=== PATIENT | female | born 1965 ===

== ENCOUNTER 2018-03-13 17:39 | Emergency (ER) | payer MEDICARE, MEDICAID ==
[2018-03-13 17:39] VITALS: BMI 24.0
[2018-03-13 18:03] VITALS: BP 102/69; PULSE 82; RESP 20; TEMP 97.4; O2SAT 97
--- NOTE | 2018-03-13 18:52 | C.PDOC ---
History Of Present Illness 53 y/o female presents to the ED for evaluation of right hand injury s/p fall out of bed 3 days ago. Patient is now complaining of persistent swelling and bruising to the hand. She went to see PMD today however they were unable to obtain he x-rays in the office and patient was referred to the ED. Patient denies any change in sensation. Time Seen by Provider: 03/13/18 18:03 Chief Complaint (Nursing): Finger,Hand,&Wrist History Per: Patient History/Exam Limitations: no limitations Onset/Duration Of Symptoms: Days Current Symptoms Are (Timing): Still Present Past Medical History Reviewed: Historical Data, Nursing Documentation, Vital Signs Vital Signs: Last Vital Signs Temp 97.4 F L 03/13/18 18:01 Pulse 82 03/13/18 18:01 Resp 20 03/13/18 18:01 BP 102/69 03/13/18 18:01 Pulse Ox 97 03/13/18 18:01 - Medical History PMH: Schizophrenia Surgical History: Cholecystectomy Family History: States: No Known Family Hx - Social History Hx Alcohol Use: No Hx Substance Use: No - Immunization History Hx Tetanus Toxoid Vaccination: No Hx Influenza Vaccination: No Hx Pneumococcal Vaccination: No Review Of Systems Constitutional: Negative for: Fever, Chills, Weakness Eyes: Negative for: Redness ENT: Negative for: Mouth Swelling Cardiovascular: Negative for: Chest Pain Respiratory: Negative for: Cough, Shortness of Breath Gastrointestinal: Negative for: Nausea, Vomiting, Diarrhea Genitourinary: Negative for: Dysuria Musculoskeletal: Positive for: Hand Pain. Negative for: Back Pain Skin: Positive for: Bruising. Negative for: Rash Neurological: Negative for: Weakness, Numbness, Dizziness Physical Exam - Physical Exam Appears: Well, Non-toxic, No Acute Distress Skin: Warm, No Rash Head: Atraumatic, Normacephalic Eye(s): bilateral: Normal Inspection, PERRL, EOMI Oral Mucosa: Moist Neck: Normal ROM Chest: Symmetrical Respiratory: No Accessory Muscle Use, Other (Normal inspiratory effort) Extremity: Normal ROM (of all digits), Tenderness, Capillary Refill (< 2 sec), Swelling (and ecchymosis to the right hand over the 4th metacarpal and 4th/5th proximal phalanx) Pulses: Left Radial: Normal, Right Radial: Normal Neurological/Psych: Oriented x3, Normal Motor, Normal Sensation ED Course And Treatment O2 Sat by Pulse Oximetry: 97 (RA) Pulse Ox Interpretation: Normal - Other Rad hand x-ray X-Ray: Interpreted by Me, Viewed By Me Interpretation: + fracture at base of the proximal phalanx of the right 5th digit Medical Decision Making Medical Decision Making: Impression: Hand pain Plan: - right hand x-ray Imaging reviewed by me, showing (+) fracture at base of the proximal phalanx of the right 5th digit. Patient notified of findings. Splint applied to right hand. Patient is stable for discharge home. Advised to follow up with hand specialist, referral provided. Disposition Counseled Patient/Family Regarding: Studies Performed, Diagnosis, Need For Followup - Disposition Referrals: Michael Rodriguez MD [Staff Provider] - Disposition: HOME/ ROUTINE Disposition Time: 18:50 Condition: STABLE Instructions: Finger Fracture (DC) Forms: [employer] (Liberian) - Clinical Impression Clinical Impression: Fracture of finger, middle or proximal phalanx, closed - PA / SEARCH MARKETING ANALYST / Resident Statement MD/DO has reviewed & agrees with the documentation as recorded. - Scribe Statement The provider has reviewed the documentation as recorded by the Scribe Thu Cortes All medical record entries made by the Fabricioibmichael were at my direction and personally dictated by me. I have reviewed the chart and agree that the record accurately reflects my personal performance of the history, physical exam, medical decision making, and the department course for this patient. I have also personally directed, reviewed, and agree with the discharge instructions and disposition.
--- NOTE | 2018-03-14 11:08 | RAD ---
PROCEDURE: Right hand Radiographs. HISTORY: fracture COMPARISON: None available. FINDINGS: BONES: Osseous demineralization limits evaluation for acute fracture lines. Acute fracture deformity at the base of 5th proximal phalanx with intra-articular extension. Chronic appearing deformity of the 5th metacarpal. Nonspecific rounded 3 mm lucency in the scaphoid. JOINTS: No dislocation. SOFT TISSUES: Soft tissue swelling. No evidence of radiopaque foreign body. OTHER FINDINGS: None. IMPRESSION: Acute mildly displaced fracture deformity at the base of the 5th proximal phalanx with intra-articular extension. Soft tissue swelling. Remote healed fracture deformity of the 5th metacarpal. Additional incidental findings as above. Study marked for PA review.
== END 2018-03-13 19:02 | disposition home or self-care (01) ==
LOC: C.ER 17:39
DX: S62.616A Displaced fracture of proximal phalanx of right little finger, initial encounter for closed fracture (principal); W06.XXXA Fall from bed, initial encounter; F20.9 Schizophrenia, unspecified

== ENCOUNTER 2018-05-08 16:25 | Emergency (ER) | payer MEDICAID, MEDICARE ==
[2018-05-08 16:25] VITALS: BMI 24.0
--- NOTE | 2018-05-08 17:57 | C.PDOC ---
History Of Present Illness 53 yr old F w/ hx of schizophrenia, HTN, DM p/w referral from PMD Dr. Mathew for ARF, dehydration, and ?pyelo. Patient was recently evaluated in [facility] and diagnosed with pyelonephritis. Patient refused to stay at the time and was disch arged home with antibiotics. Patient saw her PMD today and underwent labs which were abnormal, and is sent to the ED for further evaluation. Patient denies currently being on antibiotics. Patient complaints of diffuse abdominal pain and dysuria. She denies fever, chills,chest pain and shortness of breath. She denies hearing any voices at this time. No SI or HI. No anxiety or depression. Time Seen by Provider: 05/08/18 17:57 Chief Complaint (Nursing): Abdominal Pain History Per: Patient History/Exam Limitations: no limitations Onset/Duration Of Symptoms: Hrs Current Symptoms Are (Timing): Still Present Quality Of Discomfort: "Pain" Associated Symptoms: Urinary Symptoms. denies: Fever, Chills, Back Pain, Chest Pain Past Medical History Reviewed: Historical Data, Nursing Documentation, Vital Signs Vital Signs: Last Vital Signs Temp 97.5 F L 05/08/18 17:06 Pulse 83 05/08/18 17:06 Resp 18 05/08/18 17:06 BP 110/63 05/08/18 17:06 Pulse Ox 100 05/08/18 17:06 - Medical History PMH: HTN, Schizophrenia Surgical History: Cholecystectomy Family History: States: Unknown Family Hx - Social History Hx Alcohol Use: No Hx Substance Use: No - Immunization History Hx Tetanus Toxoid Vaccination: No Hx Influenza Vaccination: No Hx Pneumococcal Vaccination: No Review Of Systems Constitutional: Negative for: Fever, Chills, Weakness, Malaise Eyes: Negative for: Pain, Vision Change ENT: Negative for: Ear Pain, Ear Discharge, Nose Pain, Nose Congestion, Mouth Pain, Throat Pain Cardiovascular: Negative for: Chest Pain, Palpitations, Orthopnea Respiratory: Negative for: Cough, Shortness of Breath, Hemoptysis, SOB with Excertion, Pleuritic Pain, Sputum Gastrointestinal: Positive for: Abdominal Pain. Negative for: Nausea, Vomiting Genitourinary: Positive for: Dysuria. Negative for: Frequency, Incontinence, Hematuria, Vaginal Discharge, Vaginal Bleeding Musculoskeletal: Negative for: Neck Pain, Shoulder Pain, Arm Pain, Back Pain, Hand Pain, Leg Pain Skin: Negative for: Rash, Lesions Neurological: Negative for: Weakness Physical Exam - Physical Exam Appears: Well, Non-toxic, No Acute Distress Skin: Normal Color, Warm, Dry Head: Atraumatic, Normacephalic Eye(s): bilateral: Normal Inspection, PERRL, EOMI Nose: Normal, No Flaring, No Discharge Oral Mucosa: Moist Tongue: Normal Appearing, No Swelling, No Lesions Lips: Normal Appearing, No Swelling, No Contusion Teeth: Normal Dentition, No Caries Gingiva: Normal Appearing, No Erythema Throat: Normal, No Erythema, No Exudate Neck: Normal, Normal ROM, Supple, Other (no meningeal signs) Lymphatic: Normal Exam Chest: Symmetrical, No Deformity, No Tenderness Cardiovascular: Rhythm Regular, No Murmur Respiratory: Normal Breath Sounds, No Rales, No Rhonchi, No Wheezing Gastrointestinal/Abdominal: Soft, Tenderness (diffuse ), No Organomegaly, No Mass, No Distention, No Guarding, No Rebound, Other (no peritoneal signs ) Back: No CVA Tenderness, No Vertebral Tenderness Extremity: Normal ROM, Capillary Refill (less than 2 seconds ) Neurological/Psych: Oriented x3, Normal Speech, Normal Cognition ED Course And Treatment - Laboratory Results Result Diagrams: 05/08/18 18:40 05/08/18 18:47 O2 Sat by Pulse Oximetry: 100 (on RA ) Pulse Ox Interpretation: Normal Medical Decision Making Medical Decision Makin yr old female p/w concern for ARF / UTI / PYELO. On exam, well appearing in NAD. Mild abdominal pain. No fall or trauma noted. No dark or bloody stool. +dysuria w/ out rashes or sexual activity. No abnl vaginal d/c. Likely enteritis vs UTI. Progress: Bloodwork, CXR, CT A/P, EKG ordered and reviewed. Dextrose IV and IV Fluids given. 1931 appreciate consult w/ Dr. Mathew: Cr improved today from 2 to 0.9 contaminated UA sample Pending CT pending imaging 2235 imaging w/ enteritis. No elevated WBC. Pain improved per pt Spoke to PMD DR. Bañuelos, agreeable to plan for UTI rx outpt w/ scripts clear for d/c home w/ f/u and return indications Pt in NAD, agreeable to plan Disposition - Disposition Referrals: Breann Patten MD [Staff Provider] - [facility] [Outside] [facility] [Outside] [facility] [Outside] Disposition: HOME/ ROUTINE Disposition Time: 22:31 Condition: GOOD Additional Instructions: JANET GALDAMEZ, thank you for letting us take care of you today. Your pro vider was Gagan Lawson and you were treated for SENT BY PMD/EVAL. The emergency medical care you received today was directed at your acute symptoms. If you were prescribed any medication, please fill it and take as directed. It may take several days for your symptoms to resolve. Return to the Emergency Department if your symptoms worsen, do not improve, or if you have any other problems. Please contact your doctor or call one of the physicians/clinics you have been referred to that are listed on the Patient Visit Information form that is included in your discharge packet. Bring any paperwork you were given at discharge with you along with any medications you are taking to your follow up visit. Our treatment cannot replace ongoing medical care by a primary care provider outside of the emergency department. Thank you for allowing the [facility] team to be part of your care today. If you had an X-Ray or CT scan: A Radiologist will review the ED reading if any change in treatment is needed we will contact you. If you had a blood, urine, or wound culture: It will take several days for the results, if any change in treatment is needed we will contact you. If you had an STI test: It will take 48 hours for the results. Please call after 1 week if you have not heard back. Prescriptions: Ciprofloxacin HCl [Cipro] 500 mg PO BID 10 Days #20 tablet Famotidine [Pepcid] 20 mg PO Q12H PRN 3 Days #6 tab PRN Reason: Dyspepsia Phenazopyridine HCl [Pyridium] 200 mg PO BID 2 Days #4 tablet Instructions: Urinary Tract Infections in Adults, Gastritis (DC) Forms: [facility] (Kyrgyz) - Clinical Impression Clinical Impression: UTI (urinary tract infection), Gastroenteritis - Scribe Statement The provider has reviewed the documentation as recorded by the Scribe (Alessandra Callejas) Provider Attestation: All medical record entries made by the Scribe were at my direction and personally dictated by me. I have reviewed the chart and agree that the record accurately reflects my personal performance of the history, physical exam, medical decision making, and the department course for this patient. I have also personally directed, reviewed, and agree with the discharge instructions and disposition.
[2018-05-08] MEDS ORDERED: Dextrose 50% SYRINGE Inj (50 ml) IV STA (18:34)
[2018-05-08 18:48] LABS: SQUAMOUS EPITHIAL 20 /hpf (0-5); URINE BILIRUBIN NEGATIVE (NEGATIVE); URINE BLOOD NEGATIVE (NEGATIVE); URINE CLARITY Hazy (Clear); URINE COLOR Yellow (YELLOW); URINE GLUCOSE (UA) NORMAL (Normal); URINE LEUKOCYTE ESTERASE 2+ Leu/uL (Negative); URINE PROTEIN NEGATIVE (NEGATIVE); URINE UROBILINOGEN NORMAL mg/dL (0.2-1.0)
[2018-05-08 18:52] LABS: BASO # 0.2 K/uL (0.0-0.2); BASO % 1.9 % (0.0-2.0); EOS # 0.3 K/uL (0.0-0.7); EOS % 2.9 % (0.0-4.0); LYMPH # 3.9 K/uL (1.0-4.3); MEAN CELL VOLUME 90.2 fL (81.0-99.0); MEAN CORPUSCULAR HEMOGLOBIN 29.9 pg (27.0-31.0); MEAN CORPUSCULAR HGB CONC 33.2 g/dL (33.0-37.0); MEAN PLATELET VOLUME 7.7 fL (7.2-11.7); MONO # 0.7 K/uL (0.0-0.8); MONO % 6.3 % (0.0-10.0); NEUT # 5.4 K/uL (1.8-7.0); NEUT % 51.9 % (50.0-75.0); RBC 3.83 Mil/uL (3.80-5.20); RED CELL DISTRIBUTION WIDTH 13.9 % (11.5-14.5); WHITE BLOOD COUNT 10.4 K/uL (4.8-10.8)
[2018-05-08 18:54] LABS: HEMOGLOBIN 11.5 g/dL (11.0-16.0)
[2018-05-08 19:26] LABS: BLOOD UREA NITROGEN 11 mg/dL (7-17); CALCIUM 9.3 mg/dl (8.6-10.4); GFR NON-AFRICAN AMERICAN > 60
[2018-05-08 19:27] LABS: ALB/GLOB RATIO 1.6 (1.0-2.1); ALBUMIN 4.4 g/dL (3.5-5.0); ALT/SGPT 30 U/L (9-52); AST/SGOT 38 U/L (14-36); LIPASE 44 U/L (23-300)
[2018-05-08] MEDS ORDERED: Sodium Chloride 0.9% 1,000 ML IV ONE (19:30)
[2018-05-08] MEDS ORDERED: Iohexol 350mgl/ml 50 ML ONE (21:24)
[2018-05-08] MEDS ORDERED: Iohexol 350mg/ml 100 ML ONE (21:25)
[2018-05-08 23:10] VITALS: BP 110/67; PULSE 72; RESP 20; TEMP 97.9
[2018-05-08 23:24] VITALS: O2SAT 100
--- NOTE | 2018-05-09 10:34 | CT ---
Date of service: 05/08/2018 PROCEDURE: CT Abdomen and Pelvis with contrast HISTORY: Diffuse abdominal pain COMPARISON: None available. TECHNIQUE: Contrast dose: 100 mL Omnipaque 350 IV Radiation dose: Total exam DLP = 1142.93 mGy-cm. This CT exam was performed using one or more of the following dose reduction techniques: Automated exposure control, adjustment of the mA and/or kV according to patient size, and/or use of iterative reconstruction technique. FINDINGS: LOWER THORAX: No visible consolidation, pleural effusion, or pneumothorax. LIVER: Hepatomegaly. Hypoattenuation of the liver compatible with hepatic steatosis. GALLBLADDER AND BILE DUCTS: Cholecystectomy. PANCREAS: Unremarkable. SPLEEN: Unremarkable. ADRENALS: Unremarkable. KIDNEYS AND URETERS: The kidneys enhance symmetrically. No hydronephrosis or obstructing calculus identified. VASCULATURE: No aortic aneurysm. Scattered atherosclerotic calcifications of the aorta. BOWEL: Stomach is nondistended. Lack of oral contrast limits evaluation for bowel pathology. Bowel loops appear within normal limits of caliber without evidence of obstruction. Thick-walled small bowel loops in the left upper quadrant, nonspecific; correlate clinically for possibility of enteritis. APPENDIX: The appendix appears within normal limits of caliber. No secondary signs of acute appendicitis. PERITONEUM: No significant free fluid. No definite free air. LYMPH NODES: No bulky adenopathy identified. BLADDER: Unremarkable. REPRODUCTIVE: Uterus is present. BONES: No acute osseous abnormality is detected. OTHER FINDINGS: None. IMPRESSION: Nonspecific small bowel loops; correlate clinically for enteritis. Marked hepatomegaly. Hepatic steatosis. Cholecystectomy. Preliminary impression was provided by [facility].
== END 2018-05-08 23:07 | disposition home or self-care (01) ==
LOC: C.ER 16:25
DX: K52.9 Noninfective gastroenteritis and colitis, unspecified (principal); N39.0 Urinary tract infection, site not specified; E11.9 Type 2 diabetes mellitus without complications; I10 Essential (primary) hypertension; F20.9 Schizophrenia, unspecified
CPT/HCPCS: 74177; 80053; 81001; 81025; 83690; 83735; 85025; 87086; 99285; J7030; Q9967